=== PATIENT | male | born 1970 | race Caucasian/White ===

== ENCOUNTER 2017-02-22 18:32 | Emergency (ER) | payer OTHER ==
[2017-02-22 18:53] VITALS: BP 146/106; PULSE 68; TEMP 98.4; BMI 25.7
[2017-02-22] MEDS ORDERED: DIPHTH,PERTUSS(ACELL),TET 0.5 ML DISP.SYRIN IM ONE (20:12)
[2017-02-22] MEDS ORDERED: LIDOCAINE HCL 1% PRESERVATIVE FREE - 30ML VIAL INF ONE (20:16)
--- NOTE | 2017-02-22 20:57 | PDOC ---
History of Present Illness - General Chief Complaint: Laceration Stated Complaint: LACERATION Time Seen by Provider: 02/22/17 20:05 History Source: Patient Exam Limitations: No Limitations - History of Present Illness Initial Comments: 02/22/17 20:51 This is a 46 yo [id number] male who presents with left thumb base laceration sustained while working with metal. He notes that this occurred just [employer] to the ED, he did not fall or suffer any additional injuries, and he does not believe any debris got into the cut. He has had mild pain to the area since the incident, but denies any numbness, tingling, or thumb weakness on flexion or extension. He cannot recall the date of his last tetanus immunization. Past History - Past Medical History Allergies/Adverse Reactions: Allergies Allergy/AdvReac Type Severity Reaction Status Date / Time No Known Allergies Allergy Verified 02/22/17 18:50 Home Medications: Ambulatory Orders NK [No Known Home Medication] 02/22/17 Other medical history: denies. - Psycho/Social/Smoking Cessation Hx Suicidal Ideation: No Smoking History: Never smoked Review of Systems - Review of Systems Constitutional: No: Chills, Fever, Unexplained wgt Loss HEENTM: No: Nose Congestion, Throat Pain Respiratory: No: Cough, Shortness of Breath Cardiac (ROS): No: Chest Pain, Palpitations ABD/GI: No: Constipated, Diarrhea, Nausea, Vomiting : No: Burning, Dysuria Musculoskeletal: No: Back Pain, Neck Pain Integumentary: Yes: Other (left thumb base laceration). No: Bruising, Rash Neurological: No: Headache, Numbness, Tingling, Weakness, Dizziness Endocrine: No: Unexplained Weight Gain, Unexplained Weight Loss *Physical Exam - Vital Signs Last Vital Signs Temp Pulse Resp BP Pulse Ox 98.4 F 68 19 146/106 100 02/22/17 18:50 02/22/17 18:50 02/22/17 18:50 02/22/17 18:50 02/22/17 18:50 - Physical Exam General Appearance: Yes: Nourished, Other (appropriate, pleasant, and conversive primarily Icelandic-speaking male). No: Apparent Distress HEENT: positive: EOMI, Normal Voice, Hearing Grossly Normal. negative: Scleral Icterus (R), Scleral Icterus (L), Nasal Congestion Neck: positive: Trachea midline. negative: Rigid Respiratory/Chest: negative: Respiratory Distress, Accessory Muscle Use, Labored Respiration Cardiovascular: positive: Regular Rhythm, Regular Rate. negative: Murmur Gastrointestinal/Abdominal: positive: Soft. negative: Tender, Guarding Musculoskeletal: positive: Normal Inspection, Other (left thumb 5/5 strength on flexion, extension, opposition, abduction). negative: Decreased Range of Motion , Vertebral Tenderness Extremity: positive: Normal Capillary Refill, Normal Inspection, Normal Range of Motion. negative: Tender, Cyanosis Integumentary: positive: Normal Color, Dry, Warm, Other (left thumb with 2.7 cm superficial laceration which is crescent-shaped and hemostatic, some skin on flap at distal side, good capillary refill distally, sensation intact distally, good proprioception). negative: Erythema, Rash, Bruising Neurologic: positive: car salter II-XII NML intact, Fully Oriented, Alert, Normal Mood/ Affect, Normal Response, Motor Strength 5/5 Procedures - Laceration/Wound Repair Left Lateral Finger 1st digit Wound Length: 2.6 to 5.0 cm Wound Explored: clean Wound's Depth, Shape: superficial Irrigated w/ Saline: Yes Betadine Prep: Yes Anesthesia: 1% Lidocaine Amount of Anesthetic (ccs): 3 Wound Debrided: moderate ( skin removed from flap) Wound Repaired With: Sutures Suture Size/Type: 4:0, proline Number of Sutures: 1 (Running lock suture with 5 passes) ED Treatment Course - Medications Given in the ED: ED Medications Discontinued Medications Generic Name Dose Route Start Last Admin Trade Name Freq PRN Reason Stop Dose Admin Diphtheria/Tetanus/Acell Pertussis 0.5 ml 02/22/17 20:12 02/22/17 20:22 Boostrix - IM 02/22/17 20:13 0.5 ml .ONCE ONE Administration Lidocaine HCl 3 mg 02/22/17 20:16 02/22/17 20:36 Xylocaine 1% P/F - INF 02/22/17 20:17 Not Given ONCE ONE Medical Decision Making - Medical Decision Making 46 yo male with 2.7 cm left thumb base laceration. Sustained within the window of suture repair. Tetanus updated while in the ED. Irrigated copiously, debrided from skin at distal flap. Repaired with 4-0 proline running lock with 5 passes though wound. Patient will follow up with PCP or back in ED in 7-10 days. *DC/Admit/Observation/Transfer Diagnosis at time of Disposition: Laceration of thumb Qualifiers: Encounter type: initial encounter Damage to nail status: without damage Foreign body presence: without foreign body Laterality: left Qualified Code(s): S61.012A - Laceration without foreign body of left thumb without damage to nail , initial encounter - Discharge Dispostion Disposition: HOME Condition at time of disposition: Stable - Attestations Physician Attestion: 02/22/17 21:05 I, Dr. Emely Myers, attest that this document has been prepared under my direction and personally reviewed by me in its entirety. I further attest, that it accurately reflects all work, treatment, procedures and medical decision -making performed by me.
--- NOTE | 2017-02-22 20:59 | PDOC ---
Attending Attestation - Resident Resident Name: Emely Myers - HPI HPI: 02/22/17 20:58 46 yo male cut his left thumb on clean metal, 2.6 cm linear laceration - Physicial Exam PE: 02/22/17 20:59 wnwn 46 yo male with linear laceration on his left thumb, nonvascular intact -sensation intact,good ulnar and radial pulses - Medical Decision Making 02/22/17 21:01 pt received tetanus, laceration was closed w proline sutures plan- pt to f/u with pcp and have s/r in 7-10 days
== END 2017-02-22 21:18 | disposition home or self-care (01) ==
LOC: JERFT 18:32
PROC: 0HQGXZZ Repair Left Hand Skin, External Approach (ICD-10-PCS; principal; 2017-02-22)
DX: S61.012A Laceration without foreign body of left thumb without damage to nail, initial encounter (principal); W26.8XXA Contact with other sharp object(s), not elsewhere classified, initial encounter; Y93.H3 Activity, building and construction; Y92.69 Other specified industrial and construction area as the place of occurrence of the external cause; Y99.0 Civilian activity done for income or pay
CPT/HCPCS: 90715; 99281-25